=== PATIENT | male | born 1935 | race Caucasian/White ===

== ENCOUNTER 2017-03-09 06:54 | Day surgery (SDC) | payer MEDICARE, OTHER ==
--- NOTE | ~2017-03-09 | EGD ---
EGD REPORT [facility] [address] [place]. [id number] NAME: SAMEER MCGHEE : 33 STATUS : REG [facility] PAT#: [id number] AGE: 81 ADM/REG DATE : 03/09/17 MR#: [id number] REPORT SERV DATE: 03/09/17 DICTATED BY: MELODY BELTRAN DATE: 03/09/17 REPORT STATUS : Draft [facility]: [email or web address] DATE: 03/09/17 Endoscopy Center Patient Name: Sameer Mcghee Date of : 1935 Attending MD: MELODY BELTRAN, Procedure Date No Time: 03/09/2017 Procedure: Upper GI endoscopy Indications: Epigastric abdominal pain Referring MD: SHELLY SHERIDAN MD Medicines: Monitored Anesthesia Care Complications: No immediate complications. Estimated blood loss: None. Procedure: After obtaining informed consent, the endoscope was passed under direct vision. Throughout the procedure, the patient's blood pressure, pulse, and oxygen saturations were monitored continuously. The GIF [id number] was introduced through the mouth, and advanced to the second part of duodenum. The upper GI endoscopy was accomplished without difficulty. The patient tolerated the procedure well. Findings: A single small nodule with a localized distribution was found in the lower third of the esophagus. Biopsies were taken with a cold forceps for histology. Verification of patient identification for the specimen was done. Estimated blood loss was minimal. A mild Schatzki ring (acquired) was found at the gastroesophageal junction. Patchy mild inflammation characterized by erythema was found in the gastric antrum. Biopsies were taken with a cold forceps for histology. Verification of patient identification for the specimen was done. Estimated blood loss was minimal. The exam of the stomach was otherwise normal. The cardia and gastric fundus were normal on retroflexion. The examined duodenum was normal. Impression: - Nodule found in the esophagus. Biopsied. - Mild Schatzki ring. - Gastritis. Biopsied. - Normal examined duodenum. Recommendation: - Patient has a contact number available for emergencies. The signs and symptoms of potential delayed complications were discussed with the patient. Return to normal activities tomorrow. Written discharge instructions were provided to the patient. EGD REPORT [address] [address] NAME: SAMEER MCGHEE : [birth year] STATUS : REG [facility] PAT#: [id number] AGE: 81 ADM/REG DATE : 03/09/17 MR#: [id number] REPORT SERV DATE: 03/09/17 DICTATED BY: MELODY BELTRAN DATE: 03/09/17 REPORT STATUS : Draft TRANSCRIBED BY: [email or web address] DATE: 03/09/17 - Return to previous diet. - Continue present medications. - Await pathology results. Procedure Code(s): --- Professional --- 58265, Esophagogastroduodenoscopy, flexible, transoral; with biopsy, single or multiple Diagnosis Code(s): --- Professional --- K22.8, Other specified diseases of esophagus K22.2, Esophageal obstruction K29.70, Gastritis, unspecified, without bleeding R10.13, Epigastric pain CPT copyright 2013 [employer]. All rights reserved. The codes documented in this report are preliminary and upon professional fee coder review may be revised to meet current compliance requirements. MELODY BELTRAN, 03/09/2017 8:59 AM Number of Addenda: 0 Note Initiated On: 03/09/2017 8:41 AM Scope Withdrawal Time 0 hours 0 minutes 0 seconds [address] [place] [id number]
[~2017-03-09 06:54] MED LIST: ASAB PO; ATEN25 PO; BACDS PO; C25 PO; CARD120; CARD120 PO; CARDCD120 PO; CARDCD180 PO; CARDIZEM LA120 MG PO; CORDARONE PO; CYANO1000T PO; DITRO5 PO; ELIQUIS 5 MG TAB5 MG PO; FLOMAX4 PO; FLONASE NAS; HYT5 PO; ICY HOT51 TOP; JANTOVEN1 MG; JANTOVEN1 MG PO; JANTOVEN4 MG; JANTOVEN4 MG PO; JANTOVEN5 MG PO; KAON-CL-1010 MEQ PO; KLOR-CON 88 MEQ PO; L20 PO; L40 PO; LAN125 PO; LEVAQUIN750 MG PO; LINZESS 145 M145 MCG PO; LOP25 PO; LOP50 PO; LOTE10 PO; LOTE20 PO; LOTE40 PO; NORV5 PO; PACERONE200 MG PO; PERCOCET1 TA4 PO; PRAVAC PO; PRILO PO; PRILOSEC40 MG PO; PROTONIX PO; PROTONIX20 MG PO; RYTHMOL150 MG; RYTHMOL150 MG PO; RYTHMOL225 MG PO; RYTHMOL300 MG PO; TUMSROLL PO; UROXATRAL PO; ZOFRAN4 PO
== END 2017-03-09 23:59 | disposition home or self-care (01) ==
LOC: DMU 06:54
PROVIDERS: Internal Medicine Gastroenterology
PROC: 0DB68ZX Excision of Stomach, Via Natural or Artificial Opening Endoscopic, Diagnostic (ICD-10-PCS; 2017-03-09)
PROC: 0DB58ZX Excision of Esophagus, Via Natural or Artificial Opening Endoscopic, Diagnostic (ICD-10-PCS; principal; 2017-03-09 08:00)
DX: K29.50 Unspecified chronic gastritis without bleeding (principal); K22.8 Other specified diseases of esophagus; K22.2 Esophageal obstruction; R10.13 Epigastric pain; I48.91 Unspecified atrial fibrillation; I73.9 Peripheral vascular disease, unspecified; K55.059 Acute (reversible) ischemia of intestine, part and extent unspecified; I10 Essential (primary) hypertension; N40.0 Benign prostatic hyperplasia without lower urinary tract symptoms; Z79.899 Other long term (current) drug therapy
CPT/HCPCS: 88305; A9270-GY